=== PATIENT | female | born 1950 ===

== ENCOUNTER 2022-02-21 07:15 | Inpatient (IN) | payer OTHER ==
[~2022-02-21] VITALS: Ht 157.5 cm; Wt 54.0 kg
[2022-02-21] MEDS ORDERED: NORVASC5 MG PO (10:30)
[2022-02-21] MEDS ORDERED: LEVOTHYROXINE25 MCG PO (10:31)
[2022-02-21] MEDS ORDERED: NEXIUM 24HR20 M1 PO (10:32)
[2022-02-21] MEDS ORDERED: PRAVASTATIN SOD40 MG PO (10:32)
[2022-02-25] MEDS ORDERED: ESOMEPRAZOLE MA20 MG (16:21)
[2022-02-25] MEDS ORDERED: FAMOTIDINE20 MG (16:21)
[2022-02-25] MEDS ORDERED: MAXIMUM D3325 MCG (16:21)
[2022-02-27] MEDS ORDERED: OXYC1TAB9 PO (06:11)
[2022-02-27] MEDS ORDERED: XARELTO10 MG PO (06:11)
[2022-02-27] MEDS ORDERED: BACTRIM DS TAB1 EACH PO (06:11)
[2022-02-27] MEDS ORDERED: INTEGRA PLUS C1 EACH PO (06:11)
== END 2022-02-27 22:00 | disposition designated cancer center or children's hospital (05) | DRG 470 ==
LOC: SURH 02-25 07:15 → O/R 02-25 10:11 → SURH 02-25 10:11
PROVIDERS: ADMIT Orthopaedic Surgery Sports Medicine; ATTEND Orthopaedic Surgery Sports Medicine
PROC: 0SR90J9 Replacement of Right Hip Joint with Synthetic Substitute, Cemented, Open Approach (ICD-10-PCS; principal; 2022-02-25 13:45)
DX: M16.11 Unilateral primary osteoarthritis, right hip (principal); I10 Essential (primary) hypertension; E03.8 Other specified hypothyroidism; Z20.822 Contact with and (suspected) exposure to COVID-19